=== PATIENT | male | born 1990 | race Caucasian/White ===

== ENCOUNTER 2017-04-02 19:18 | Inpatient (IN) | payer SELFPAY ==
--- NOTE | 2017-04-02 20:13 | ED ---
Psychiatric Complaint - HPI Summary HPI Summary: Pt here w/ SI - worse as of late. Reports he's had these on/off most of his adult life. States he lost his job, living residence and girlfriend within a 3 days period recently. Has been staying with friends some nights and sleeping outside others ("trying not to get wet"). Has a little bit of money left over from tax return which he's scraping by on currently. H/o smoking marijuana to cope but knows he can't do that now as he's trying to get a new job. He did "slip" and smoke the other day, so he cut a small area on his thumb to remind himself to "stay clean". He does report a h/o cutting himself - can't state why but reports he is aware of how to do serious damage and has not yet. His SI currently are that he would "put a knife to (his) chest and walk into a tree or wall, probably outside so it would be easier". Also admits his mood is swinging and he gets angry easily. Denies darien HI but does have loose thoughts of harming others when he's angry. States he would more likely hurt himself before hurting anyone else. Has never had counseling nor diagnosis of his mental health status. Here today because he knows he can't do it on his own anymore and wants help. - History Of Current Complaint Chief Complaint: EDMentalHealth Time Seen by Provider: 04/02/17 19:43 Hx Obtained From: Patient - Allergies/Home Medications Allergies/Adverse Reactions: Allergies Allergy/AdvReac Type Severity Reaction Status Date / Time No Known Allergies Allergy Verified 04/02/17 19:25 PMH/Surg Hx/FS Hx/Imm Hx Previously Healthy: Yes - Immunization History Immunizations Up to Date: Unable to Obtain/Confirm Infectious Disease History: Unable to Obtain/Confirm Infectious Disease History: Denies: Traveled Outside the [place] in Last 30 Days - Family History Known Family History: Positive: Cardiac Disease - mom - [place] in 60's - Social History Occupation: Unemployed Lives: Alone - undomiciled Alcohol Use: Rare Substance Use Type: Reports: Marijuana - occasionally Hx Tobacco Use: Yes Smoking Status (MU): Current Every Day Smoker Review of Systems Constitutional: Negative Negative: Fever, Chills Cardiovascular: Negative Negative: Palpitations, Chest Pain Respiratory: Negative Negative: Shortness Of Breath, Cough Gastrointestinal: Negative Negative: Abdominal Pain, Vomiting, Diarrhea, Nausea Positive: no symptoms reported Musculoskeletal: Negative Skin: Other - intermittent skin condition - unsure of diagnosis, but cream from [facility] has helped in the past Neurological: Negative Psychological: Other - see HPI All Other Systems Reviewed And Are Negative: Yes Physical Exam Triage Information Reviewed: Yes Vital Signs On Initial Exam: Initial Vitals Temp Pulse Resp BP Pulse Ox 98.8 F 87 18 126/69 99 04/02/17 19:21 04/02/17 19:21 04/02/17 19:21 04/02/17 19:21 04/02/17 19:21 Vital Signs Reviewed: Yes Appearance: Positive: Well-Appearing, No Pain Distress, Well-Nourished Skin: Positive: Warm, Dry - erythematous patches w/ flaking overlying skin in areas (apepars to be a dermatitis, possible fungal infection) - over face, in hairlines and on chest Head/Face: Positive: Normal Head/Face Inspection Eyes: Positive: Normal, EOMI, Conjunctiva Clear ENT: Positive: Hearing grossly normal, Pharynx normal - mucosa moist Neck: Positive: Supple - no gross thyromegaly Respiratory/Lung Sounds: Positive: Breath Sounds Present Cardiovascular: Positive: Normal, RRR Abdomen Description: Positive: Nontender, Soft Bowel Sounds: Positive: Present Musculoskeletal: Positive: Normal, Strength/ROM Intact Neurological: Positive: Normal, Sensory/Motor Intact, Alert, Oriented to Person Place, Time, CN Intact II-III Psychiatric: Positive: Other - low mood but pleasant , calm and cooperative - reports SI as in HPI - [place] Coma Scale Coma Scale Total: 15 Diagnostics - Vital Signs Vital Signs Temp Pulse Resp BP Pulse Ox 04/02/17 19:34 98.8 F 97 18 126/69 99 04/02/17 19:21 98.8 F 87 18 126/69 99 - Laboratory Lab Statement: Any lab studies that have been ordered have been reviewed, and results considered in the medical decision making process.
[2017-04-02 20:25] LABS: Hematocrit 48 % (42-52); Hemoglobin 15.9 g/dl (14.0-18.0); Mean Corpuscular HGB Conc 33 g/dl (31-36); Mean Corpuscular Hemoglobin 31 pg (27-31); Mean Corpuscular Volume 92 fL (80-94); Mean Platelet Volume 9 um3 (7.4-10.4); Red Blood Count 5.21 10^6/ul (4.0-5.4); Red Cell Distribution Width 13 % (10.5-15); White Blood Count 6.8 10^3/ul (3.5-10.8)
[2017-04-02 20:37] LABS: ALT 7 U/L (7-52); AST 11 U/L (13-39); Albumin 4.4 g/dL (3.2-5.2); Alkaline Phosphatase 68 U/L (34-104); Anion Gap 5 mmol/L (2-11); BUN/Creatinine Ratio 7.4 (8-20); Blood Urea Nitrogen 8 mg/dL (6-24); CO2 Carbon Dioxide 27 mmol/L (22-32); Calcium 9.4 mg/dL (8.6-10.3); Chloride 104 mmol/L (101-111); EGFR African American 106.3 (>60); EGFR Non-African American 82.6 (>60); Globulin 2.8 g/dL (2-4); Glucose 91 mg/dL (70-100); Sodium 136 mmol/L (133-145); Total Protein 7.2 g/dL (6.4-8.9)
[2017-04-02 20:50] LABS: Acetaminophen < 15 mcg/mL; Alcohol < 10 mg/dL (<10); Salicylate < 2.50 mg/dL (<30)
[2017-04-02 20:59] LABS: TSH (Thyroid Stimulating Horm) 1.74 mcIU/mL (0.34-5.60)
[2017-04-02 21:06] LABS: Urine Bilirubin Negative (Negative); Urine Glucose Negative (Negative); Urine Nitrite Negative (Negative)
[2017-04-02 21:19] LABS: Benzodiazepine Urine Screen None Detected (None Detect)
[2017-04-02] MEDS ORDERED: Mouth Piece, Nicotine* 1 EACH CARTRIDGE INH SCH (22:31)
[2017-04-02] MEDS ORDERED: Al Hydrox/Mg Hydrox/Simet LIQ* 30 ML UDC PO PRN (22:31)
[2017-04-02] MEDS ORDERED: Acetaminophen TAB* 325 MG PO PRN (22:31)
--- NOTE | 2017-04-03 05:01 | ED ---
Tyree Singh Alok, scribed for Coy Goddard MD on 04/02/17 at 2146 . Progress - Progress Note Progress Note: [facility] admit 2114 for depression and SI. Condition stable, paperwork signed. Will be sent to behavior health unit. - Consult/PCP Time Called: 20:30 Course/Dx - Diagnoses Provider Diagnoses: Depression, Suicidal ideation The documentation as recorded by the shannanibTyree dimas Alok accurately reflects the service I personally performed and the decisions made by , Coy Goddard MD.
[2017-04-03] MEDS: Vitamin THERAPEUTIC TAB PO SCH (08:37)
[2017-04-03] MEDS: Nicotine GUM* 2 MG PO PRN (08:47)
--- NOTE | 2017-04-03 11:28 | PN ---
MHU: Group Therapy Note - Service Type Service Type: [id number] Group Psychotherapy - Cognitive Behavioral Group Therapy ( CBT):Patient was attentive and participatory in CBT programming this morning, and remained in good behavioral control. Patient expressed positive insights regarding relevant treatment interventions and goals.
[2017-04-03] MEDS: FLUoxetine CAP* 10 MG PO SCH (14:15)
[2017-04-03] MEDS: Nicotine PATCH 14 MG/24 HR* PATCH TRANSDERM SCH (14:15)
[2017-04-03] MEDS: Gentamicin 0.3% OPTH.OINT* 3.5 GM TUBE LEFT EYE SCH ×3 (14:17→20:59)
[2017-04-03] MEDS: Nicotine Inhaler* 10 MG AMP INH PRN ×2 (17:23→20:58)
[2017-04-03] MEDS: Nicotine Patch Removal NOTE FOLLOW UP SCH (20:59)
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
[2017-04-04] MEDS: traZODone TAB* 50 MG TAB PO PRN ×2 (02:45→22:10)
[2017-04-04] MEDS: Nicotine PATCH 14 MG/24 HR* PATCH TRANSDERM SCH (08:21)
[2017-04-04] MEDS: FLUoxetine CAP* 10 MG PO SCH (08:22)
[2017-04-04] MEDS: Vitamin THERAPEUTIC TAB PO SCH (08:22)
[2017-04-04] MEDS: Gentamicin 0.3% OPTH.OINT* 3.5 GM TUBE LEFT EYE SCH ×2 (08:36→20:43)
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
[2017-04-04] MEDS: Nicotine Inhaler* 10 MG AMP INH PRN (16:13)
[2017-04-04] MEDS: Nicotine GUM* 2 MG PO PRN (16:13)
[2017-04-04] MEDS: Nicotine Patch Removal NOTE FOLLOW UP SCH (20:43)
[2017-04-05] MEDS: Nicotine PATCH 14 MG/24 HR* PATCH TRANSDERM SCH (08:53)
[2017-04-05] MEDS: Vitamin THERAPEUTIC TAB PO SCH (08:53)
[2017-04-05] MEDS: FLUoxetine CAP* 20 MG PO SCH (08:53)
[2017-04-05] MEDS: Gentamicin 0.3% OPTH.OINT* 3.5 GM TUBE LEFT EYE SCH ×2 (08:54→22:29)
[2017-04-05] MEDS: Nicotine Inhaler* 10 MG AMP INH PRN ×4 (09:44→21:25)
--- NOTE | 2017-04-05 17:14 | PN ---
Subjective - Subjective Subjective: Kim encores improvements in sleep and mood, less thoughts of suicide. He denies side effects from prescribed medications. He continues to worry about housing and employment, was disappointed that a meeting with [facility] did not take place on Friday. He is agreeable to continue inpatient stay. Objective - Appearance Appearance: Healthy Appearing Dysmorphic Features: No Hygiene: Normal Grooming: Fairly Well Kept - Behavior Psychomotor Activities: Normal Exhibits Abnormal Movement: No - Attitude and Relatedness Attitude and Relatedness: Needy Eye Contact: Fair - Speech Quality: Unpressured Latencies: Normal Quantity: Appropriate - Mood Patient's Decription of Mood: better today - Affect Observed Affect: Constricted Affect Consistent with: Dysphoria - Thought Process Patient's Thought Process: Coherent, Goal Directed Thought Content: Yes Passive Wish, No Suicidal Planning, No Homicidal Ideation, No Paranoid Ideation - Sensorium Experiencing Hallucinations: No, Sensorium is Clear - Level of Consciousness Level of Consciousness: Alert Orientation: Yes Intact - Impulse Control Impulse Control: Intact - Insight and Judgement Insight and Judgement: Poor - Group Participation Particating in Group Activities: Yes - Medication Management Medication Management Adherence: Yes Assessment - Assessment Merits Inpatient Hospitalization: For Ongoing Evaluation, Consolidate Improvements, For Discharge Planning Inpatient DSM-IV Dx: major depressive d/o; cannabis use d/o Clinical Impression: Stabilizing in this structured environment with lower distress level, decreased SI, tolerating trials of Fluoxetine and Trazodone. He needs continued admission for stabilization. Plan - Plan Treatment Plan: Name: KIM HATCH Birthdate: 1990 [id number] Medications: Current Medications Acetaminophen (Tylenol Tab*) 650 mg PO Q4H PRN PRN Reason: PAIN or TEMP > 101 F Al Hydrox/Mg Hydrox/Simethicone (Maalox Plus*) 30 ml PO Q4H PRN PRN Reason: INDIGESTION Device (Nicotine Mouth Piece*) 1 each INH .[facility] Last Admin: 04/03/17 17:22 Dose: 1 each Fluoxetine HCl (Prozac Cap*) 20 mg PO DAILY [facility] Last Admin: 04/05/17 08:53 Dose: 20 mg Gentamicin Sulfate (Gentamicin 0.3% Opth.Oint*) 1 applic LEFT EYE BID [facility] Last Admin: 04/05/17 08:54 Dose: 1 applic Multivitamins (Theragran Tab*) 1 tab PO DAILY [facility] Last Admin: 04/05/17 08:53 Dose: 1 tab Nicotine (Nicotine Inhaler*) 10 mg INH Q2H PRN PRN Reason: CRAVING Last Admin: 04/05/17 15:29 Dose: 10 mg Nicotine (Nicotine Patch 14 Mg/24 Hr*) 1 patch TRANSDERM DAILY [facility] Last Admin: 04/05/17 08:53 Dose: 1 patch Nicotine Polacrilex (Nicotine Gum*) 2 mg PO Q2H PRN PRN Reason: CRAVING Last Admin: 04/04/17 16:13 Dose: 2 mg Pharmacy Profile Note (Nicotine Patch Removal Note*) 1 note FOLLOW UP 2100 [facility] Last Admin: 04/04/17 20:43 Dose: 1 note Trazodone HCl (Desyrel Tab*) 50 mg PO BEDTIME PRN PRN Reason: INSOMNIA Last Admin: 04/04/17 22:10 Dose: 50 mg - Discharge Plan Discharge Plan: Outpatient Follow Up Outpatient Program: [facility]
[2017-04-05] MEDS: Nicotine GUM* 2 MG PO PRN (21:24)
[2017-04-05] MEDS: Nicotine Patch Removal NOTE FOLLOW UP SCH (21:31)
[2017-04-05] MEDS: traZODone TAB* 50 MG TAB PO PRN (22:29)
[2017-04-06] MEDS: Nicotine Inhaler* 10 MG AMP INH PRN ×6 (08:07→23:39)
[2017-04-06] MEDS: Nicotine PATCH 14 MG/24 HR* PATCH TRANSDERM SCH (08:08)
[2017-04-06] MEDS: FLUoxetine CAP* 20 MG PO SCH (08:09)
[2017-04-06] MEDS: Gentamicin 0.3% OPTH.OINT* 3.5 GM TUBE LEFT EYE SCH ×2 (08:09→22:21)
[2017-04-06] MEDS: Vitamin THERAPEUTIC TAB PO SCH (08:09)
[2017-04-06] MEDS: Nicotine GUM* 2 MG PO PRN ×3 (16:08→21:03)
[2017-04-06] MEDS: Nicotine Patch Removal NOTE FOLLOW UP SCH (21:04)
[2017-04-06] MEDS: traZODone TAB* 50 MG TAB PO PRN (22:21)
[2017-04-07] MEDS: Nicotine PATCH 14 MG/24 HR* PATCH TRANSDERM SCH (08:21)
[2017-04-07] MEDS: Nicotine Inhaler* 10 MG AMP INH PRN ×4 (08:21→19:58)
[2017-04-07] MEDS: Gentamicin 0.3% OPTH.OINT* 3.5 GM TUBE LEFT EYE SCH ×2 (08:22→21:08)
[2017-04-07] MEDS: Nicotine GUM* 2 MG PO PRN ×3 (08:22→15:51)
[2017-04-07] MEDS: Vitamin THERAPEUTIC TAB PO SCH (08:22)
[2017-04-07] MEDS: FLUoxetine CAP* 20 MG PO SCH (08:23)
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
[2017-04-07] MEDS ORDERED: hydrOXYzine HCL TAB* 25 MG ONE (19:46)
[2017-04-07] MEDS: Mirtazapine TAB* 15 MG PO SCH (21:07)
[2017-04-07] MEDS: Triamcinolone 0.5% OINT * 15 GM TUBE TOPICAL SCH (21:08)
[2017-04-07] MEDS: Nicotine Patch Removal NOTE FOLLOW UP SCH (21:10)
[2017-04-08] MEDS: Nicotine PATCH 14 MG/24 HR* PATCH TRANSDERM SCH (08:53)
[2017-04-08] MEDS: Vitamin THERAPEUTIC TAB PO SCH (08:54)
[2017-04-08] MEDS: FLUoxetine CAP* 20 MG PO SCH (08:54)
[2017-04-08] MEDS: Gentamicin 0.3% OPTH.OINT* 3.5 GM TUBE LEFT EYE SCH ×2 (08:55→21:21)
[2017-04-08] MEDS: Triamcinolone 0.5% OINT * 15 GM TUBE TOPICAL SCH ×2 (08:55→21:24)
[2017-04-08] MEDS: Nicotine Inhaler* 10 MG AMP INH PRN ×5 (08:57→21:17)
[2017-04-08] MEDS: hydrOXYzine HCL TAB* 25 MG PO PRN ×2 (10:14→17:41)
[2017-04-08] MEDS: Nicotine GUM* 2 MG PO PRN ×4 (10:15→21:17)
--- NOTE | 2017-04-08 13:12 | PN ---
MHU: Group Therapy Note - Service Type Service Type: [id number] Group Psychotherapy - Cognitive Behavioral Group Therapy ( CBT):Patient was attentive and participatory in CBT programming this morning, and remained in good behavioral control. Patient expressed positive insights regarding relevant treatment interventions and goals.
--- NOTE | 2017-04-08 13:24 | PN ---
Subjective - Subjective Service Type: 89751 Hosp care 15 min low complexity Subjective: Patient reports continued improved mood and anxiety. He states that he was "a little anxious" yesterday and utilized hydroxyzine with good effect. He reports completing most of the DSS paperwork and is eager to pursue outpatient services and community resources. He denies SI or passive wish. He reports improved sleep with mirtazapine and denies daytime sedation or other adverse effects. Patient reports drastic improvement in rash on face with triamcinolone cream. He denies pain or itching at site of sty on L eye. Sty appears to be healing well. Objective - Appearance Appearance: Well Developed/Nourished Dysmorphic Features: No Hygiene: Normal Grooming: Well Kept - Behavior Psychomotor Activities: Normal Exhibits Abnormal Movement: No - Attitude and Relatedness Attitude and Relatedness: Cooperative Eye Contact: Good - Speech Quality: Unpressured Latencies: Normal Quantity: Appropriate - Mood Patient's Decription of Mood: "alright" - Affect Observed Affect: Good - Thought Process Patient's Thought Process: Coherent, Incoherent, Goal Directed Thought Content: No Passive Wish, No Suicidal Planning, No Homicidal Ideation, No Paranoid Ideation - Sensorium Experiencing Hallucinations: No, Sensorium is Clear Type of Hallucinations: Visual: No, Auditory: No, Command: No - Level of Consciousness Level of Consciousness: Alert Orientation: Yes Intact, Yes Orientated to Time, Yes Orientated to Place, Yes Orientated to Person - Impulse Control Impulse Control: Intact - Insight and Judgement Insight and Judgement: Good - Group Participation Particating in Group Activities: Yes - Medication Management Medication Management Adherence: Yes Assessment - Assessment Merits Inpatient Hospitalization: For Discharge Planning Inpatient DSM-IV Dx: major depressive d/o; cannabis use d/o Clinical Impression: Kim is a 26yo male with no prior mental health treatment. He presented as depressed with hopelessness/worthlessness and passive wish after an unexpected break up with his girlfriend. He is benefitting from supportive milieu and participating fully in programming. He has started fluoxetine and mirtazapine with good effect and no adverse effects. Stressors of housing and access to mental health care were targeted during admission. Plan - Plan Treatment Plan: Name: KIM HATCH Birthdate: 1990 [id number] Patient reports improvement in mood and and denies suicidal ideation or passive wish. Will continue medications and programming today. Patient is agreeable to an early discharge tomorrow morning in order to be able to access [facility] services for emergency housing. He will be given appointments for follow at [facility]. Electronic prescriptions will be sent to [facility], [facility]. Continued Medication Management: Start Medication Medications: Current Medications Acetaminophen (Tylenol Tab*) 650 mg PO Q4H PRN PRN Reason: PAIN or TEMP > 101 F Al Hydrox/Mg Hydrox/Simethicone (Maalox Plus*) 30 ml PO Q4H PRN PRN Reason: INDIGESTION Device (Nicotine Mouth Piece*) 1 each INH .[facility] Last Admin: 04/03/17 17:22 Dose: 1 each Fluoxetine HCl (Prozac Cap*) 20 mg PO DAILY [facility] Last Admin: 04/08/17 08:54 Dose: 20 mg Gentamicin Sulfate (Gentamicin 0.3% Opth.Oint*) 1 applic LEFT EYE BID [facility] Last Admin: 04/08/17 08:55 Dose: 1 applic Hydroxyzine HCl (Atarax Tab*) 25 mg PO Q6H PRN PRN Reason: ANXIETY Last Admin: 04/08/17 10:14 Dose: 25 mg Mirtazapine (Remeron Tab*) 15 mg PO BEDTIME [facility] Last Admin: 04/07/17 21:07 Dose: 15 mg Multivitamins (Theragran Tab*) 1 tab PO DAILY [facility] Last Admin: 04/08/17 08:54 Dose: 1 tab Nicotine (Nicotine Inhaler*) 10 mg INH Q2H PRN PRN Reason: CRAVING Last Admin: 04/08/17 11:47 Dose: 10 mg Nicotine (Nicotine Patch 14 Mg/24 Hr*) 1 patch TRANSDERM DAILY [facility] Last Admin: 04/08/17 08:53 Dose: 1 patch Nicotine Polacrilex (Nicotine Gum*) 2 mg PO Q2H PRN PRN Reason: CRAVING Last Admin: 04/08/17 10:15 Dose: 2 mg Pharmacy Profile Note (Nicotine Patch Removal Note*) 1 note FOLLOW UP 2100 [facility] Last Admin: 04/07/17 21:10 Dose: 1 note Triamcinolone Acetonide (Triamcinolone 0.5% Oint *) 1 applic TOPICAL BID [facility] Last Admin: 08/01/17 08:55 Dose: 1 applic - Discharge Plan Discharge Plan: Outpatient Follow Up Outpatient Program: [facility]
[2017-04-08] MEDS: Nicotine Patch Removal NOTE FOLLOW UP SCH (21:18)
[2017-04-08] MEDS: Mirtazapine TAB* 15 MG PO SCH (22:14)
[2017-04-09 07:53] VITALS: BP 118/76
[2017-04-09] MEDS: FLUoxetine CAP* 20 MG PO SCH (07:57)
[2017-04-09] MEDS: Vitamin THERAPEUTIC TAB PO SCH (07:57)
[2017-04-09] MEDS: Nicotine PATCH 14 MG/24 HR* PATCH TRANSDERM SCH (07:58)
[2017-04-09] MEDS: hydrOXYzine HCL TAB* 25 MG PO PRN (08:27)
[2017-04-09] MEDS: Nicotine GUM* 2 MG PO PRN (08:27)
--- NOTE | 2017-04-09 16:46 | CONS ---
PSYCHOLOGICAL REPORT: DATE OF CONSULT: 04/08/17 REASON FOR REFERRAL: Anthony was referred for personality testing secondary to concerns regarding depression and possible lethality as well as consideration for characterological vulnerabilities regarding axis II trait consideration. TEST ADMINISTERED: Anthony completed the [place] Multiphasic Personality Inventory-2 (MMPI-2), and was given feedback in individual conversation. RELEVANT HISTORY: Anthony is a 26-year-old male, who recently was terminated from employment and was also dumped by his girlfriend unexpectedly. This has resulted in homelessness, although Anthony does have supportive family in the area with a sister in [place] and his mother, whom he described as being distant from, in [place]. 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 Anthony originally is from [place], but has been in [facility] for the past 2 years. He reports increasing difficulties with feeling hopeless and helpless and has experienced depressive rumination including inner voice which is self-derogatory. He describes this inner experience is worsening recently and including having thoughts of engaging in self-harm. He has remote history of engaging in what sounds to be delicate self -mutilation with cutting as his primary intervention beginning around [age] and persisting until approximately a year ago, he reports. He also describes fluctuating patterns in sleep, describing not sleeping much at all, and then getting rebound sleep and sleeping too much. Anthony does deny intentions of engaging in suicidal behavior, but is describing being disturbed by his feelings of hopelessness. BEHAVIORAL OBSERVATIONS: Anthony has engaged productively in unit programming while here and initiates clinical discussion in individual conversation in a constructive fashion. He responds well to supportive psychotherapy interventions, but is quite unsure of what his immediate future holds for him. Discussion attempted to address eliciting both formal and informal supports including both possible intervention with family members to either improve or repair relationships as well as enlist in professional supports through [facility] and [facility]. TEST RESULTS: Anthony provides what is considered to be "a cry for help" response on this administration of the MMPI-2. He has elevated 3 primary stressor scales to an exaggerated degree (Fb rises to a T score of 105), which serves to inflate the clinical scales as well. In fact, he has elevated all the clinical scales except for hypomania and social introversion, with primary elevation occurring on the paranoia and schizophrenia scales (T = 80 and 90 respectively) with a concomitant elevation on the depression scale (T = 80). He also elevates psychopathic deviate scale to a similar degree. Discussion with Anthony regarding test results emphasized his feelings of being socially ostracized and feeling alienated from supports and connections with people. There were no concerns regarding psychotic function as Anthony is clearly able to distinguish between hearing voices and having self-derogatory self-talk. IMPRESSION AND RECOMMENDATIONS: Anthony impresses as being a good candidate to engage in insight-oriented cognitive psychotherapies. He expresses intentions of compliance with outpatient care and compliance with the recommended medications. He is actively seeking both professional and personal supports and continues to contemplate his recent breakup and loss of employment. Clinical interventions focused on effective problem solving in the immediate future as well as projecting positive goals and objectives into more distant future as well. Anthony responds well to this discussion, although he impresses as having some dependent traits, evident both in test results as well as in interpersonal interaction. Ongoing clinical interventions should foster enhanced sense of independence and competencies with hopes that he can find success in his immediate future post discharge and seeking employment and finding independent housing. DIAGNOSTIC IMPRESSION: [place] I: Unspecified depressive disorder; cannabis use disorder. [place] II: Consider dependent personality traits. [place] III: See medical records. [place] IV: Psychosocial stressors are significant regarding homelessness and unemployment. [place] V: Current Global Assessment of Functioning 45. [id number]/[id number] #: [id number]
--- NOTE | 2017-04-10 05:51 | DS ---
DISCHARGE SUMMARY: DATE OF ADMISSION: 04/02/17 DATE OF DISCHARGE: 04/09/17 DISCHARGE DIAGNOSES: Are as follows: [place] I: Unspecified depressive disorder, rule out major depressive disorder, cannabis use disorder. [place] II: Dependent personality traits. [place] III: Psoriasis, stye. [place] IV: Severe psychosocial stressors related to homelessness and unemployment , poor social support. [place] V: At the time of admission was 35, at the time of discharge is 60. CONDITION AT THE TIME OF DISCHARGE: Stable. The patient is steadfastly denying suicidal ideations and he has done so for several days now. He has been safe on all checks and he is requesting discharge to the outpatient setting. The main stressor leading to this hospitalization was recent homelessness secondary to a breakup with a female partner that he had been residing with. This has been addressed by the team by hooking him up with [facility] [employer] [facility] [facility] and he is released to present at [employer] in order to get both housing and emergency financial services. The patient is agreeable to psychiatric followup in the community and he is considered somewhat low risk for completed suicide secondary to being future oriented and responding well to medication and psychotherapeutic interventions. MENTAL STATUS EXAM: At the time of discharge, the patient is a young, white male, average height and build, clean, well groomed, calm, cooperative, expressive. Speech has a normal rate, tone, and volume. Mood is euthymic with a full affect. Thought process is linear and goal directed. Thought content is significant for his desire to leave the hospital. He denies suicidal or homicidal ideations. He denies auditory or visual hallucinations. Insight and judgment are fair given his willingness to follow up with outpatient treatment. Cognitively, he is awake and alert with what would appear to be an average intellect. DISCHARGE INSTRUCTIONS: To the patient are as follows: A. Medications. He is takin. Fluoxetine 20 mg p.o. daily. 2. He is taking mirtazapine 15 mg p.o. q.h.s. 3. He is taking gentamicin 0.3% ophthalmic ointment apply to the left eye twice daily. 4. Triamcinolone 0.5% ointment apply to his facial rash twice daily. 5. Hydroxyzine 25 mg p.o. every 6 hours as needed for anxiety. B. Diet is regular. C. Activity: As tolerated. The patient is offered continued nicotine replacement therapy; however, he is declining this stating that his preference is to continue smoking cigarettes for the time being. D. Followup care: The patient will follow up with the [facility] within one week of discharge. HOSPITAL COURSE: Part A: Reason for Admission: The patient is a 26-year-old, single white male recently homeless and unemployed, who arrived at the emergency room seeking voluntary hospitalization secondary to suicidal ideations. He indicates that he asked a friend to bring him to the emergency department because of increased depression and suicidal ideations stating that he had been "doing okay for a little bit" but continued to have an increase in hopelessness and helplessness. He stated that he had a voice inside of his head that was telling him to do things and described it not as his voice, but very negative, saying derogatory things towards to him. He denied visual hallucinations. He did report suicidal ideation intermittently since his early 20s, but denied any past history of suicide attempts. He stated that there were times when he felt like putting a knife to his own throat, but did not hurt himself at those times. He reported the onset of cutting "feel something" when he was about 11 or 12 years old and did so approximately until one year ago. Anthony reported a recent breakup with his girlfriend which came suddenly and unexpectedly. He stated that she told him that he had four days to find some other place to live. Since then, he had been experiencing fluctuating sleep, either not sleeping enough or sleeping too much. He did deny avoidance, hypervigilance, flashbacks, or nightmares. He denied anxiety or panic attacks. He denied depersonalization , rituals, phobias, obsessions, or compulsions. He also denied any prior history of manic episodes Part B: Psychiatric treatment rendered: The patient was admitted to the Adult Behavioral Health Unit where he was placed on q.15-minute checks for his own safety. The patient was cooperative throughout his hospitalization, was agreeable to medication trial and was started on fluoxetine 20 mg daily. He continued to complain of poor sleep at night and so, mirtazapine 15 mg p.o. q.h.s. was added as an augmentation strategy. For breakthrough anxiety, he received low dose hydroxyzine as a p.r.n. which seemed to benefit even further. The patient was active in groups as well as the milieu setting, socializing with peers, getting along with staff. He almost immediately became more future oriented, was able to express his desire to continue living and his willingness to pursue outpatient treatment following discharge. He tolerated the medication well and is also agreeable to continuing this on an ongoing basis. One notable problem that presented at the time of admission was his recent homelessness. The patient has a lack of social support in the community and so , he was referred to the [employer] for emergency funding to take get himself back on his feet as he seeks out appointment and a more stable individual housing options in the community. He was cooperative with all treatments initiated by the treatment team and he is feeling that he could be treated safely in a less restricted environment. For these reasons, we are discharging Mr. Anthony Morales from our unit and we wish him the best in the future for a safe, healthy, and stable future. [id number]/[facility] #: [id number] MTDD
== END 2017-04-09 08:55 | disposition home or self-care (01) | DRG 881 ==
LOC: ED 19:18 → BSU 21:48
PROVIDERS: ADMIT Psychiatry & Neurology Psychiatry; ATTEND Psychiatry & Neurology Psychiatry
PROC: GZHZZZZ Group Psychotherapy (ICD-10-PCS; principal; 2017-04-03)
DX: F32.9 Major depressive disorder, single episode, unspecified (principal); R45.851 Suicidal ideations; F17.210 Nicotine dependence, cigarettes, uncomplicated; F12.90 Cannabis use, unspecified, uncomplicated; R40.2412 Glasgow coma scale score 13-15, at arrival to emergency department; L40.9 Psoriasis, unspecified; H00.016 Hordeolum externum left eye, unspecified eyelid; F51.05 Insomnia due to other mental disorder; F41.9 Anxiety disorder, unspecified; Z56.0 Unemployment, unspecified; Z59.0 Homelessness; Z82.49 Family history of ischemic heart disease and other diseases of the circulatory system
CPT/HCPCS: 36415; 80053; 80307; 80320; 80329; 81003; 84443; 85025; 90853; 99222; 99231; 99238; A9270-GY; G0480